=== PATIENT | female | born 1995 | race Two or more races ===

== ENCOUNTER 2018-04-24 15:58 | Emergency (ER) | payer OTHER ==
[~2018-04-24] VITALS: Ht 172.7 cm; Wt 56.7 kg
[2018-04-24] MEDS ORDERED: POLYCIN EYE OI3.5 GM OP (17:35)
[2018-04-24] MEDS ORDERED: MUCINEX DM ER1 EAC1 PO (17:35)
[2018-04-24] MEDS ORDERED: TESSALON PERLE100 M1 PO (17:35)
[2018-04-24] MEDS ORDERED: ZITHROMAX TRI-500 MG PO (17:35)
== END 2018-04-24 17:48 | disposition home or self-care (01) ==
LOC: ER 15:58
DX: J06.9 Acute upper respiratory infection, unspecified (principal)

== ENCOUNTER 2024-05-02 05:06 | Emergency (ER) | payer OTHER ==
[~2024-05-02] VITALS: Ht 167.6 cm; Wt 59.0 kg
[~2024-05-02 05:06] MED LIST: MUCINEX DM ER1 EAC1 PO; POLYCIN EYE OI3.5 GM OP; TESSALON PERLE100 M1 PO; ZITHROMAX TRI-500 MG PO
[2024-05-02] MEDS ORDERED: 0.9 % SODIUM CHLORIDE 1,000 ML IV STA (05:15)
[2024-05-02] MEDS ORDERED: NALOXONE HCL 0.4 MG/ML AMPUL IV STA (05:16)
[2024-05-02] MEDS ORDERED: FLUMAZENIL 0.5 MG/5 ML ML IV STA (05:16)
[2024-05-02 05:39] LABS: HEMATOCRIT 41.7 % (36.0-45.00); HEMOGLOBIN 14.5 g/dL (12.0-15.00); MEAN CELL VOLUME 90.7 fL (80.00-100.00); MEAN CORPUSCULAR HEMOGLOBIN 31.6 pg (27.00-32.0); MEAN CORPUSCULAR HGB CONC 34.8 g/dl (32.0-36.0); PLATELET COUNT 370 K/uL (150-450); RED BLOOD COUNT 4.59 M/uL (4.00-6.00); RED CELL DISTRIBUTION WIDTH 13.8 % (11.5-14.5)
[2024-05-02 05:53] LABS: CALCIUM 9.1 mg/dL (8.5-10.1); CREATININE SERUM 0.84 mg/dL (0.55-1.02); GFR 80.73
[2024-05-02 05:55] LABS: POTASSIUM 2.83 mEq/L (3.5-5.1)
[2024-05-02] MEDS ORDERED: POTASSIUM CHLORIDE 10 MEQ CAPSULE PO STA (07:03)
[2024-05-02 09:20] LABS: PH,URINE 6.5 (5.0-8.0); URINE APPEARANCE Clear; URINE BILIRRUBIN Negative (NEGATIVE); URINE BLOOD Negative; URINE COLOR Yellow; URINE GLUCOSE Negative (NEGATIVE); URINE KETONE Negative (NEGATIVE); URINE LEUKOCYTE Negative; URINE NITRATE Negative; URINE PROTEIN Negative (NEGATIVE)
[2024-05-02 09:23] LABS: URINE BACTERIA 81.8 uL (0.0-1933); URINE EPITHELIAL CELLS 9.1 uL (0.0-38.8); URINE RBC 3.9 uL (0.0-20.8); URINE WBC 10.8 uL (0.0-23.2)
[2024-05-02 09:45] LABS: COCAINE POSITIVE (NEGATIVE); METHADONE NEGATIVE (NEGATIVE); OPIATES NEGATIVE (NEGATIVE); THC ( Cannabinoids) NEGATIVE (NEGATIVE)
[2024-05-02 10:41] LABS: CALCIUM 8.8 mg/dL (8.5-10.1); CREATININE SERUM 0.66 mg/dL (0.55-1.02); GFR 106.64; POTASSIUM 3.64 mEq/L (3.5-5.1)
== END 2024-05-02 12:01 | disposition home or self-care (01) ==
LOC: ER 05:06
PROVIDERS: General Practice
DX: R41.82 Altered mental status, unspecified (principal); F19.10 Other psychoactive substance abuse, uncomplicated